=== PATIENT | male | born 1950 | race Caucasian/White ===

== ENCOUNTER 2017-02-10 11:59 | Inpatient (IN) | payer OTHER, MEDICARE ==
[~2017-02-10] VITALS: Ht 172.7 cm; Wt 101.2 kg
[2017-02-10 13:22] LABS: Hematocrit 44.9 % (41.0-53.0); Hemoglobin 15.2 g/dL (13.5-17.5); Mean Corpuscular Hemoglobin 31.5 pg (28.0-32.0); Mean Corpuscular Hgb Conc. 33.9 g/dL (32.0-36.0); Mean Corpuscular Volume 92.8 fL (80.0-100.0); Mean Platelet Volume 7.6 fL (6.9-10.8); Platelet Count (auto) 210 10^3/uL (140-450); Red Cell Distribution Width 14.8 % (11.8-14.3); White Blood Cell 3.8 10^3/uL (4.4-10.8)
[2017-02-10 13:26] LABS: Metamyelocytes % 0; Myelocytes % 0; Promyelocytes % 0; Reactive Lymphocytes 0
[2017-02-10 13:33] LABS: Albumin 3.2 g/dL (3.4-5.0); BUN/Creatinine Ratio 19.5; Calcium 8.3 mg/dL (8.5-10.1); Potassium 3.7 mmol/L (3.5-5.1)
[2017-02-10 13:36] LABS: Bilirubin, Total 0.5 mg/dL (0.2-1.0); Total Protein 6.8 g/dL (6.4-8.2)
[2017-02-10 14:00] LABS: B-Type Natriuretic Peptide 76.63 pg/mL (0-100)
[2017-02-10 14:01] LABS: Temperature: 23.1 C (20.0-25.0)
[2017-02-10 14:15] LABS: Giant Platelets Few; Large Platelets FEW; Ovalocytes FEW; Platelet Estimate Adequate
[2017-02-10] MEDS ORDERED: methylPREDNISolone SOD SUCC 125 MG/2 ML VL IV ONE (14:30)
[2017-02-10] MEDS ORDERED: ALBUTEROL SULF 2.5 MG/0.5ML(0.5%) NEB SOLN NEB ONE (14:30)
[2017-02-10] MEDS ORDERED: IPRATROPIUM BROM 0.5 MG/2.5ML INH SOL NEB ONE (14:30)
[2017-02-10 16:16] LABS: Urine Bilirubin Negative (Negative); Urine Blood Negative /uL (Negative); Urine Color Yellow (Yellow); Urine Glucose Normal (Normal); Urine Hyaline Cast MOD /lpf (0 - 2); Urine Ketone 1+ (Negative); Urine Mucus FEW (None Seen); Urine Nitrite Negative (Negative); Urine RBC <1 /hpf (0 - 3); Urine Squamous Epithelial Cell FEW /hpf (<5); Urine Urobilinogen Normal (Negative)
[2017-02-10] MEDS ORDERED: HYDROcodone-ACET 5/325MG TAB PO PRN (16:45)
[2017-02-10] MEDS ORDERED: ALBUTEROL SULF 2.5 MG/0.5ML(0.5%) NEB SOLN NEB PRN (16:45)
[2017-02-10] MEDS ORDERED: NITROGLYCERIN 0.4 MG SL TAB SL PRN (16:45)
[2017-02-10] MEDS ORDERED: ACETAMINOPHEN 500 MG TAB PO PRN (16:45)
[2017-02-10] MEDS ORDERED: DOXYCYCLINE HYC 100MG/250ML 250 ML IV SCH (16:45)
[2017-02-10] MEDS ORDERED: OSELTAMIVIR 75 MG CAP PO ONE (16:45)
[2017-02-10] MEDS ORDERED: LACTULOSE 20Gm/30ML SOLN PO PRN (16:45)
[2017-02-10] MEDS ORDERED: MORPHINE SULF INJ 2 MG/ML SYRINGE 1ML IV PRN ×2 (16:45)
[2017-02-10] MEDS ORDERED: DEXTROSE (50%) 50ML SYRG IV PRN (16:45)
[2017-02-10] MEDS ORDERED: LORazepam 0.5 MG TAB PO PRN (16:45)
[2017-02-10] MEDS ORDERED: TEMAZEPAM 15 MG CAP PO PRN (16:45)
[2017-02-10] MEDS ORDERED: PROMETHAZINE HCL 25 MG/ML 1ML IV PRN (16:45)
[2017-02-10] MEDS ORDERED: LEVOFLOXACIN 500MG 100 ML IV ONE (17:00)
[2017-02-10] MEDS: IPRATROPIUM BROM 0.5 MG/2.5ML INH SOL NEB SCH ×2 (18:30→23:14)
[2017-02-10] MEDS: ALBUTEROL SULF 2.5 MG/0.5ML(0.5%) NEB SOLN NEB SCH ×2 (18:30→23:15)
[2017-02-10] MEDS: methylPREDNISolone SOD SUCC 40 MG/ML VL IV SCH (18:43)
[2017-02-10] MEDS: InsuLIN REG 1unit/0.01ml Soln (100units/ml) SC SCH ×2 (18:44→22:08)
[2017-02-10] MEDS: ACCU-CHEK COMFORT CURVE STRIP VI SCH ×2 (18:44→21:56)
[2017-02-10] MEDS: SODIUM CHLORIDE 0.9% 1,000 ML IV SCH (18:44)
[2017-02-10] MEDS ORDERED: LABETALOL HCL 5 MG/ML ML 20ML VIAL IV PRN ×2 (19:00)
[2017-02-10 21:20] VITALS: BP 168/99
[2017-02-10 21:46] VITALS: BP 168/99
[2017-02-10 22:10] VITALS: BP 168/99
[2017-02-11] MEDS ORDERED: GLIP-115 PO (01:33)
[2017-02-11] MEDS ORDERED: TEMA30CA PO (01:33)
[2017-02-11] MEDS ORDERED: OLOD1AER2 IN (01:33)
[2017-02-11] MEDS ORDERED: OME20T PO (01:33)
[2017-02-11] MEDS ORDERED: DOCU100T15 PO (01:33)
[2017-02-11] MEDS ORDERED: SIMV-13 PO (01:33)
[2017-02-11] MEDS ORDERED: LOSA50TA6 PO (01:33)
[2017-02-11] MEDS ORDERED: MOME200A INH (01:33)
[2017-02-11] MEDS ORDERED: METO-159 PO (01:33)
[2017-02-11] MEDS ORDERED: ASPI81CH43 GT (01:33)
[2017-02-11] MEDS ORDERED: HYDR-4683 PO (01:33)
[2017-02-11] MEDS ORDERED: GABA-497 PO (01:33)
[2017-02-11] MEDS: methylPREDNISolone SOD SUCC 40 MG/ML VL IV SCH ×2 (05:01→17:10)
[2017-02-11 05:11] VITALS: BP 162/93
[2017-02-11 05:28] LABS: Basophils # (auto) 0 uL; Eosinophils # (auto) 0 uL; Hemoglobin 15.3 g/dL (13.5-17.5); Lymphocytes # (auto) 0.2 uL; Monocytes # (auto) 0.1 uL; Red Cell Distribution Width 14.3 % (11.8-14.3)
[2017-02-11 05:30] LABS: Basophils % (auto) 0.1 % (0.0-2.0); Lymphocytes % (auto) 19.9 % (10.0-50.0); Mean Corpuscular Hemoglobin 31.7 pg (28.0-32.0); Mean Corpuscular Hgb Conc. 34.7 g/dL (32.0-36.0); Mean Corpuscular Volume 91.3 fL (80.0-100.0); Mean Platelet Volume 7.7 fL (6.9-10.8); Monocytes % (auto) 10.6 % (0.0-12.0); Neutrophils # (auto) 0.7 uL; Neutrophils % (auto) 69.4 % (37.0-80.0); Nucleated Red Blood Cells % 0.6 %; Platelet Count (auto) 198 10^3/uL (140-450)
[2017-02-11] MEDS: SODIUM CHLORIDE 0.9% 1,000 ML IV SCH ×2 (05:41→16:39)
[2017-02-11 05:42] LABS: White Blood Cell 1.1 10^3/uL (4.4-10.8)
[2017-02-11 05:46] LABS: Albumin 3.1 g/dL (3.4-5.0); BUN/Creatinine Ratio 17.7; Bilirubin, Total 0.5 mg/dL (0.2-1.0); Calcium 8.3 mg/dL (8.5-10.1); Total Protein 6.7 g/dL (6.4-8.2)
[2017-02-11] MEDS: ACCU-CHEK COMFORT CURVE STRIP VI SCH ×4 (06:20→21:54)
[2017-02-11] MEDS: InsuLIN REG 1unit/0.01ml Soln (100units/ml) SC SCH ×4 (06:29→21:55)
[2017-02-11] MEDS ORDERED: DOXYCYCLINE HYC 100MG/250ML 250 ML IV SCH (06:45)
[2017-02-11] MEDS: IPRATROPIUM BROM 0.5 MG/2.5ML INH SOL NEB SCH ×3 (07:03→18:49)
[2017-02-11] MEDS: ALBUTEROL SULF 2.5 MG/0.5ML(0.5%) NEB SOLN NEB SCH ×3 (07:03→18:49)
[2017-02-11 08:42] VITALS: BP 162/88
[2017-02-11] MEDS: LEVOFLOXACIN 500MG 100 ML IV SCH (09:57)
[2017-02-11] MEDS: ENOXAPARIN SOD 40 MG/0.4 ML SYRINGE SC SCH (09:57)
[2017-02-11] MEDS ORDERED: OSELTAMIVIR 75 MG CAP PO SCH (10:00)
[2017-02-11] MEDS ORDERED: MORPHINE SULFATE 4 MG/ML SYRG IV PRN ×2 (11:45)
[2017-02-11 13:00] VITALS: BP 169/96
[2017-02-11] MEDS ORDERED: LOSARTAN POTASSIUM 50 MG TAB PO ONE (15:30)
[2017-02-11 17:00] VITALS: BP 155/95
[2017-02-11] MEDS: METOPROLOL TARTRATE 50 MG TAB PO SCH (21:56)
[2017-02-11 22:00] VITALS: BP 197/111
[2017-02-12] MEDS: methylPREDNISolone SOD SUCC 40 MG/ML VL IV SCH (04:57)
[2017-02-12 05:06] VITALS: BP 149/89
[2017-02-12 05:53] LABS: Hematocrit 46.1 % (41.0-53.0); Hemoglobin 15.9 g/dL (13.5-17.5); Mean Corpuscular Hemoglobin 31.9 pg (28.0-32.0); Mean Corpuscular Hgb Conc. 34.6 g/dL (32.0-36.0); Mean Corpuscular Volume 92.2 fL (80.0-100.0); Mean Platelet Volume 7.9 fL (6.9-10.8); Platelet Count (auto) 228 10^3/uL (140-450); Red Cell Distribution Width 14.1 % (11.8-14.3)
[2017-02-12 06:04] LABS: BUN/Creatinine Ratio 18.2; Calcium 8.5 mg/dL (8.5-10.1); Magnesium 2.1 mg/dL (1.6-2.6); Potassium 4.2 mmol/L (3.5-5.1)
[2017-02-12] MEDS: ALBUTEROL SULF 2.5 MG/0.5ML(0.5%) NEB SOLN NEB SCH ×3 (06:15→11:28)
[2017-02-12] MEDS: IPRATROPIUM BROM 0.5 MG/2.5ML INH SOL NEB SCH ×3 (06:15→11:28)
[2017-02-12 06:28] LABS: Metamyelocytes % 0; Myelocytes % 0; Promyelocytes % 0; Reactive Lymphocytes 0
[2017-02-12] MEDS: ACCU-CHEK COMFORT CURVE STRIP VI SCH ×2 (06:28→11:30)
[2017-02-12] MEDS: InsuLIN REG 1unit/0.01ml Soln (100units/ml) SC SCH ×2 (06:36→11:40)
[2017-02-12 06:53] LABS: Platelet Estimate Adequate
[2017-02-12] MEDS: SODIUM CHLORIDE 0.9% 1,000 ML IV SCH (08:10)
[2017-02-12 08:36] VITALS: BP 143/84
[2017-02-12] MEDS ORDERED: LOSARTAN POTASSIUM 50 MG TAB PO SCH (10:00)
[2017-02-12] MEDS: LEVOFLOXACIN 500MG 100 ML IV SCH ×2 (10:23→10:30)
[2017-02-12] MEDS: METOPROLOL TARTRATE 50 MG TAB PO SCH (10:24)
[2017-02-12] MEDS: ENOXAPARIN SOD 40 MG/0.4 ML SYRINGE SC SCH (10:24)
[2017-02-12] MEDS ORDERED: LEVOFLOXACIN 500 MG TAB PO ONE (11:00)
[2017-02-12] MEDS ORDERED: LEVO500T21 PO (12:33)
[2017-02-12 12:37] VITALS: BP 159/88
[2017-02-12 13:00] VITALS: BP 140/80
== END 2017-02-12 14:30 | disposition home or self-care (01) | DRG 189 ==
LOC: ER 11:59 → TELE 12:00 → TELE-CENTR 20:25
PROVIDERS: ADMIT Internal Medicine; ATTEND Internal Medicine
DX: J96.01 Acute respiratory failure with hypoxia (principal); I27.20 Pulmonary hypertension, unspecified; J44.0 Chronic obstructive pulmonary disease with (acute) lower respiratory infection; J90 Pleural effusion, not elsewhere classified; Z99.81 Dependence on supplemental oxygen; D72.819 Decreased white blood cell count, unspecified; E11.9 Type 2 diabetes mellitus without complications; J44.1 Chronic obstructive pulmonary disease with (acute) exacerbation; I49.3 Ventricular premature depolarization; J20.9 Acute bronchitis, unspecified; T75.89XA Other specified effects of external causes, initial encounter; X58.XXXA Exposure to other specified factors, initial encounter; I10 Essential (primary) hypertension; E78.5 Hyperlipidemia, unspecified; I70.0 Atherosclerosis of aorta; I25.10 Atherosclerotic heart disease of native coronary artery without angina pectoris; Z95.5 Presence of coronary angioplasty implant and graft; I25.2 Old myocardial infarction; Z90.49 Acquired absence of other specified parts of digestive tract; Z87.891 Personal history of nicotine dependence; Y93.89 Activity, other specified; Y92.89 Other specified places as the place of occurrence of the external cause; Y99.8 Other external cause status
CPT/HCPCS: 36415; 71010; 80048; 80053; 80061; 81001; 82962; 83036; 83735; 83880; 85007; 85025; 85027; 87070; 87205; 87400; 87493; 93005; 94640; 96365; 96366; 96367; 96375; J1815; J1956; J3490

== ENCOUNTER 2020-08-11 09:22 | Inpatient (IN) | payer OTHER, MEDICARE ==
[~2020-08-11] VITALS: Ht 170.2 cm; Wt 75.1 kg
[~2020-08-11 09:22] MED LIST: ASPI81CH43 GT; DOCU100T15 PO; GABA300C10 PO; GLIP5TAB12 PO; HYDR-4833 PO; LEVO500T31 PO; LOSA-69 PO; METO-159 PO; MOME200A INH; OLOD1AER2 IN; OME20T PO; SIMV-13 PO; TEMA30CA PO
[2020-08-11] MEDS ORDERED: ASPirin 81 mg TAB PO ONE (09:45)
[2020-08-11] MEDS ORDERED: dilTIAZem 25 MG/5 ML VIAL IV ONE (09:45)
[2020-08-11] MEDS ORDERED: SODIUM CHLORIDE 0.9% 1,000 ML IV ONE (09:45)
[2020-08-11] MEDS ORDERED: NOREPINEPHRINE 8 MG/250ML KIT 250 ML IV SCH (09:45)
[2020-08-11 10:17] LABS: Basophils # (auto) 0 10 ^3/uL (0-0.2); Basophils % (auto) 0.3 % (0.0-2.0); Eosinophils # (auto) 0 10 ^3/uL (0-0.8); Eosinophils % (auto) 0.1 % (0.0-7.0); Hematocrit 35.8 % (41.0-53.0); Hemoglobin 12.3 g/dL (13.5-17.5); Lymphocytes # (auto) 0.5 10 ^3/uL (0.4-5.4); Lymphocytes % (auto) 4.2 % (10.0-50.0); Mean Corpuscular Hemoglobin 32.3 pg (28.0-32.0); Mean Corpuscular Hgb Conc. 34.3 g/dL (32.0-36.0); Mean Corpuscular Volume 93.9 fL (80.0-100.0); Monocytes # (auto) 1.1 10 ^3/uL (0-1.3); Monocytes % (auto) 9.3 % (0.0-12.0); Neutrophils # (auto) 10.3 10 ^3/uL (1.6-8.6); Neutrophils % (auto) 86.1 % (37.0-80.0); Red Blood Cells 3.81 10^6/uL (4.5-5.90); Red Cell Distribution Width 14.8 % (11.8-14.3)
[2020-08-11 10:23] LABS: INR 1.14 (0.9-1.15)
[2020-08-11 10:26] LABS: Albumin 3.3 g/dL (3.4-5.0); Calcium 8.4 mg/dL (8.5-10.1); Potassium 3.8 mmol/L (3.5-5.1)
[2020-08-11 10:32] LABS: BUN/Creatinine Ratio 13.7; Bilirubin, Total 0.5 mg/dL (0.2-1.0); Total Protein 6.1 g/dL (6.4-8.2)
[2020-08-11] MEDS ORDERED: ENOXAPARIN SOD 100 MG/1 ML SYRINGE SC ONE (11:00)
[2020-08-11] MEDS ORDERED: DIGOXIN (250MCG/ML) 2 ML AMPULE IV ONE (12:30)
[2020-08-11] MEDS ORDERED: NITROGLYCERIN 0.4 MG SL TAB SL PRN (13:30)
[2020-08-11] MEDS ORDERED: MORPHINE SULF INJ 2 MG/ML SYRINGE 1ML IV PRN (13:30)
[2020-08-11] MEDS ORDERED: HYDROcodone-ACET 5/325MG TAB PO PRN (13:30)
[2020-08-11] MEDS: PHENYLEPHRINE INJ 40 MG in SODIUM CHL 0.9% 246 ML IV SCH (13:47)
[2020-08-11] MEDS ORDERED: AMIODARONE HCL 150 MG in D5W 5% 100 ML IV ONE ×2 (14:15→16:00)
[2020-08-11] MEDS ORDERED: AMIODARONE 450mg/250ml AE 250 ML IV SCH ×4 (14:30→22:15)
[2020-08-11] MEDS ORDERED: ASPI-498 PO (15:20)
[2020-08-11] MEDS ORDERED: LOSA-39 PO (15:29)
[2020-08-11] MEDS ORDERED: TRAZ50TA2 PO (15:29)
[2020-08-11] MEDS ORDERED: METF-370 PO (15:29)
[2020-08-11] MEDS ORDERED: SERT-160 PO (15:29)
[2020-08-11] MEDS ORDERED: FURO20TA3 PO (15:29)
[2020-08-11] MEDS ORDERED: OMEP-260 PO (15:29)
[2020-08-11] MEDS ORDERED: ALBU0.084 NEB (15:29)
[2020-08-11] MEDS ORDERED: DOCU250C4 PO (15:29)
[2020-08-11] MEDS ORDERED: ALBUAER3 IN (15:29)
[2020-08-11] MEDS ORDERED: TIOT17SP IN (15:29)
[2020-08-11] MEDS ORDERED: CHOL500023 PO (15:29)
[2020-08-11] MEDS ORDERED: ROSU5TAB5 PO (15:29)
[2020-08-11] MEDS ORDERED: ACET-6 PO (15:29)
[2020-08-11] MEDS ORDERED: BUDE1AER4 IN (15:33)
[2020-08-11] MEDS ORDERED: GABA300C10 PO (15:34)
[2020-08-11] MEDS ORDERED: THROLOZ41 MT (15:36)
[2020-08-11] MEDS: ACETAMINOPHEN 500 MG TAB PO PRN (15:38)
[2020-08-11] MEDS: SODIUM CHLOR 0.9% PF (SALINE LOCK) 10ML VIAL/SYR IV SCH (22:00)
[2020-08-11] MEDS: METOPROLOL TARTRATE 50 MG TAB PO SCH (22:49)
[2020-08-11] MEDS: AMIODARONE HCL 200 MG TAB PO SCH (22:49)
[2020-08-11] MEDS: ATORVASTATIN 20 MG TAB PO SCH (22:49)
[2020-08-12] MEDS: PHENYLEPHRINE INJ 40 MG in SODIUM CHL 0.9% 246 ML IV SCH (05:10)
[2020-08-12 06:30] LABS: Hemoglobin 11.9 g/dL (13.5-17.5); Mean Corpuscular Hgb Conc. 34.1 g/dL (32.0-36.0)
[2020-08-12 06:34] LABS: Red Blood Cells 3.73 10^6/uL (4.5-5.90); Red Cell Distribution Width 15.1 % (11.8-14.3)
[2020-08-12 06:37] LABS: INR 1.14 (0.9-1.15); Partial Thromboplastin Time 30.2 sec (23.0-31.2)
[2020-08-12 06:42] LABS: Potassium 4.1 mmol/L (3.5-5.1)
[2020-08-12 07:00] LABS: BUN/Creatinine Ratio 14.2; White Blood Cell 36.6 10^3/uL (4.4-10.8)
[2020-08-12 07:01] LABS: Basophils % (manual) 0 (0.0-2.0); Blast Cells 0; Eosinophils % (manual) 0 (0-7); Metamyelocytes % 0; Myelocytes % 0; Promyelocytes % 0; Reactive Lymphocytes 0
[2020-08-12 07:36] LABS: Band Neutrophils % (manual) 4; Lymphocytes % (manual) 1 (10.0-50.0); Monocytes % (manual) 7 (0-12)
[2020-08-12] MEDS ORDERED: cefTRIAXone 1GM/50ML D5W 50 ML IV SCH (09:00)
[2020-08-12] MEDS: ASPirin-EC 81 mg tab PO SCH (09:39)
[2020-08-12] MEDS: SODIUM CHLORIDE 0.9% 1,000 ML IV SCH ×2 (09:39→22:50)
[2020-08-12] MEDS: SODIUM CHLOR 0.9% PF (SALINE LOCK) 10ML VIAL/SYR IV SCH ×2 (09:39→22:00)
[2020-08-12] MEDS: AMIODARONE HCL 200 MG TAB PO SCH ×2 (09:40→23:24)
[2020-08-12] MEDS: FAMOTIDINE 20 MG TAB PO SCH (09:40)
[2020-08-12] MEDS: ENOXAPARIN SOD 80 MG/0.8ML SYRINGE SC SCH (09:48)
[2020-08-12] MEDS: METOPROLOL TARTRATE 50 MG TAB PO SCH ×2 (09:51→22:00)
[2020-08-12 11:15] LABS: Urine Amorphous Crystal FEW /hpf (None Seen); Urine Bacteria NONE SEEN /hpf (None Seen); Urine Blood 3+ /uL (Negative); Urine Specific Gravity 1.015 (1.001-1.035); Urine WBC 3 /hpf (0 - 3)
[2020-08-12 11:30] LABS: Sodium Urine 25 mmol/L (40-220)
[2020-08-12 11:32] LABS: Creatinine, Urine 174 mg/dL (30.0-125.0)
[2020-08-12] MEDS ORDERED: DEXTROSE (50%) 50ML SYRG IV PRN (15:00)
[2020-08-12] MEDS ORDERED: PIPERACILLIN-TAZOB 2.25GM 50 ML IV ONE (15:00)
[2020-08-12 15:10] LABS: Protein, Urine 106.5 mg/dL (0.0-11.9)
[2020-08-12 15:25] LABS: Alcohol, Urine < 3.0 mg/dL (0-10); Amphetamine Screen, Urine NEGATIVE (NEGATIVE); Barbiturate Scree,Urine NEGATIVE (NEGATIVE); Benzodiazephine Screen, Urine NEGATIVE (NEGATIVE); Cannabinoid Screen, Urine NEGATIVE (NEGATIVE); Cocaine Screen, Urine NEGATIVE (NEGATIVE); Opiate Scree,Urine NEGATIVE (NEGATIVE); Phencyclidine Screen, Urine NEGATIVE (NEGATIVE)
[2020-08-12 15:38] VITALS: BP 133/75
[2020-08-12] MEDS: MORPHINE SULF INJ 2 MG/ML SYRINGE 1ML IV PRN (16:14)
[2020-08-12] MEDS: InsuLIN REG 1unit/0.01ml Soln (100units/ml) SC SCH ×2 (16:16→22:52)
[2020-08-12] MEDS: ACCU-CHEK COMFORT CURVE STRIP VI SCH ×2 (16:17→22:50)
[2020-08-12] MEDS: IPRATROPIUM BROM 0.5 MG/2.5ML INH SOL NEB PRN (18:23)
[2020-08-12] MEDS: LEVALBUTEROL HCL 1.25 MG/3 ML NEB NEB SCH (18:23)
[2020-08-12] MEDS: PIPERACILLIN-TAZOB 2.25GM 50 ML IV SCH (23:24)
[2020-08-12] MEDS: ATORVASTATIN 20 MG TAB PO SCH (23:24)
[2020-08-13] MEDS: LEVALBUTEROL HCL 1.25 MG/3 ML NEB NEB SCH ×4 (00:32→22:39)
[2020-08-13] MEDS: IPRATROPIUM BROM 0.5 MG/2.5ML INH SOL NEB PRN ×2 (00:32→22:39)
[2020-08-13] MEDS: PIPERACILLIN-TAZOB 2.25GM 50 ML IV SCH ×3 (06:16→22:13)
[2020-08-13] MEDS: InsuLIN REG 1unit/0.01ml Soln (100units/ml) SC SCH (07:00)
[2020-08-13] MEDS: ACCU-CHEK COMFORT CURVE STRIP VI SCH (07:01)
[2020-08-13 07:42] LABS: Basophils # (auto) 0.2 10 ^3/uL (0-0.2); Eosinophils # (auto) 0.1 10 ^3/uL (0-0.8); Eosinophils % (auto) 0.3 % (0.0-7.0); Hematocrit 33.3 % (41.0-53.0); Hemoglobin 11.4 g/dL (13.5-17.5); Lymphocytes # (auto) 0.4 10 ^3/uL (0.4-5.4); Lymphocytes % (auto) 2.3 % (10.0-50.0); Mean Corpuscular Hgb Conc. 34.2 g/dL (32.0-36.0); Mean Corpuscular Volume 93.7 fL (80.0-100.0); Monocytes # (auto) 1.3 10 ^3/uL (0-1.3); Monocytes % (auto) 6.9 % (0.0-12.0); Neutrophils # (auto) 17.5 10 ^3/uL (1.6-8.6); Neutrophils % (auto) 89.5 % (37.0-80.0); Red Blood Cells 3.55 10^6/uL (4.5-5.90); Red Cell Distribution Width 14.9 % (11.8-14.3); White Blood Cell 19.5 10^3/uL (4.4-10.8)
[2020-08-13 08:03] LABS: Albumin 2.6 g/dL (3.4-5.0); Calcium 7.6 mg/dL (8.5-10.1); Magnesium 1.9 mg/dL (1.6-2.6); Potassium 4.3 mmol/L (3.5-5.1)
[2020-08-13 08:06] LABS: BUN/Creatinine Ratio 18.8
[2020-08-13 08:11] LABS: Bilirubin, Total 0.4 mg/dL (0.2-1.0); Total Protein 5.6 g/dL (6.4-8.2)
[2020-08-13] MEDS: SODIUM CHLOR 0.9% PF (SALINE LOCK) 10ML VIAL/SYR IV SCH ×2 (09:32→22:08)
[2020-08-13] MEDS: ENOXAPARIN SOD 80 MG/0.8ML SYRINGE SC SCH (09:33)
[2020-08-13] MEDS: METOPROLOL TARTRATE 50 MG TAB PO SCH ×2 (09:33→22:12)
[2020-08-13] MEDS: AMIODARONE HCL 200 MG TAB PO SCH ×2 (09:33→22:12)
[2020-08-13] MEDS: ASPirin-EC 81 mg tab PO SCH (09:33)
[2020-08-13 12:45] VITALS: BP 112/77
[2020-08-13] MEDS ORDERED: LORazepam 2MG/ML-1ML VIAL IV ONE (13:45)
[2020-08-13] MEDS ORDERED: MAGNESIUM SULFATE 1GM/100ML 100 ML IV ONE (13:45)
[2020-08-13 17:00] VITALS: BP 148/84
[2020-08-13] MEDS: SODIUM CHLORIDE 0.9% 1,000 ML IV SCH (17:25)
[2020-08-13] MEDS: MORPHINE SULF INJ 2 MG/ML SYRINGE 1ML IV PRN (18:04)
[2020-08-13 22:03] VITALS: BP 141/76
[2020-08-13] MEDS: ATORVASTATIN 20 MG TAB PO SCH (22:12)
[2020-08-14] VITALS (14 sets, daily range): BP systolic 118–178; BP diastolic 51–126
[2020-08-14] MEDS: IPRATROPIUM BROM 0.5 MG/2.5ML INH SOL NEB PRN ×3 (00:32→18:50)
[2020-08-14] MEDS: LEVALBUTEROL HCL 1.25 MG/3 ML NEB NEB SCH ×4 (00:33→18:50)
[2020-08-14] MEDS: PIPERACILLIN-TAZOB 2.25GM 50 ML IV SCH ×3 (05:58→20:53)
[2020-08-14] MEDS: SODIUM CHLORIDE 0.9% 1,000 ML IV SCH (06:25)
[2020-08-14 06:53] LABS: Basophils # (auto) 0 10 ^3/uL (0-0.2); Basophils % (auto) 0.2 % (0.0-2.0); Eosinophils # (auto) 0.1 10 ^3/uL (0-0.8); Eosinophils % (auto) 0.7 % (0.0-7.0); Hematocrit 31.9 % (41.0-53.0); Hemoglobin 11.1 g/dL (13.5-17.5); Lymphocytes # (auto) 0.4 10 ^3/uL (0.4-5.4); Lymphocytes % (auto) 3.2 % (10.0-50.0); Mean Corpuscular Hemoglobin 32.6 pg (28.0-32.0); Mean Corpuscular Hgb Conc. 34.7 g/dL (32.0-36.0); Mean Corpuscular Volume 93.9 fL (80.0-100.0); Monocytes # (auto) 1.4 10 ^3/uL (0-1.3); Monocytes % (auto) 11.6 % (0.0-12.0); Neutrophils # (auto) 9.8 10 ^3/uL (1.6-8.6); Neutrophils % (auto) 84.3 % (37.0-80.0); Red Cell Distribution Width 14.9 % (11.8-14.3); White Blood Cell 11.7 10^3/uL (4.4-10.8)
[2020-08-14 07:10] LABS: Albumin 2.6 g/dL (3.4-5.0); Calcium 8.1 mg/dL (8.5-10.1); Magnesium 2.2 mg/dL (1.6-2.6); Potassium 4.1 mmol/L (3.5-5.1)
[2020-08-14 07:21] LABS: Bilirubin, Total 0.4 mg/dL (0.2-1.0); Total Protein 5.6 g/dL (6.4-8.2)
[2020-08-14 09:05] LABS: Folate (Folic Acid) 4.48 ng/mL (5.38-24)
[2020-08-14] MEDS ORDERED: DIGOXIN (250MCG/ML) 2 ML AMPULE ONE (09:39)
[2020-08-14] MEDS ORDERED: DIGOXIN (250MCG/ML) 2 ML AMPULE IV ONE (09:45)
[2020-08-14] MEDS: ASPirin-EC 81 mg tab PO SCH (10:27)
[2020-08-14] MEDS: AMIODARONE HCL 200 MG TAB PO SCH ×2 (10:27→20:53)
[2020-08-14] MEDS: METOPROLOL TARTRATE 50 MG TAB PO SCH ×2 (10:27→20:54)
[2020-08-14] MEDS: ENOXAPARIN SOD 80 MG/0.8ML SYRINGE SC SCH ×2 (10:28→20:54)
[2020-08-14] MEDS: FAMOTIDINE 20 MG TAB PO SCH (10:28)
[2020-08-14] MEDS ORDERED: BUDESONIDE (INHALATION) 0.5 MG/2 ML NEB NEB ONE (11:33)
[2020-08-14] MEDS: SODIUM CHLOR 0.9% PF (SALINE LOCK) 10ML VIAL/SYR IV SCH ×2 (11:47→20:52)
[2020-08-14] MEDS ORDERED: hydrALAZINE HCL 20 MG/ML VL ONE (13:59)
[2020-08-14] MEDS ORDERED: FUROSEMIDE 20 MG/2 ML VIAL ONE (13:59)
[2020-08-14] MEDS ORDERED: guaiFENesin-DM 100/10mg/5ml SYR PO PRN (14:00)
[2020-08-14] MEDS ORDERED: FUROSEMIDE 20 MG/2 ML VIAL IV ONE (14:00)
[2020-08-14] MEDS ORDERED: ONDANSETRON HCL 4 MG/2 ML VIAL ONE (14:42)
[2020-08-14] MEDS: ONDANSETRON HCL 4 MG/2 ML VIAL IV PRN (14:49)
[2020-08-14] MEDS: hydrALAZINE HCL 20 MG/ML VL IV PRN (14:49)
[2020-08-14] MEDS: BUDESONIDE (INHALATION) 0.5 MG/2 ML NEB NEB SCH (18:50)
[2020-08-14] MEDS: ATORVASTATIN 20 MG TAB PO SCH (20:53)
[2020-08-14] MEDS: traZODone HCL 50 MG TAB PO SCH (20:53)
[2020-08-15] VITALS (23 sets, daily range): BP systolic 115–179; BP diastolic 55–94
[2020-08-15] MEDS: LEVALBUTEROL HCL 1.25 MG/3 ML NEB NEB SCH ×4 (00:39→19:10)
[2020-08-15] MEDS: SODIUM CHLORIDE 0.9% 1,000 ML IV SCH ×2 (01:00→15:45)
[2020-08-15] MEDS: PIPERACILLIN-TAZOB 2.25GM 50 ML IV SCH ×3 (03:14→15:36)
[2020-08-15] MEDS: MORPHINE SULF INJ 2 MG/ML SYRINGE 1ML IV PRN ×4 (05:04→20:19)
[2020-08-15 05:22] LABS: Basophils # (auto) 0 10 ^3/uL (0-0.2); Basophils % (auto) 0.3 % (0.0-2.0); Eosinophils # (auto) 0.1 10 ^3/uL (0-0.8); Hematocrit 31.3 % (41.0-53.0); Hemoglobin 10.8 g/dL (13.5-17.5); Lymphocytes # (auto) 0.4 10 ^3/uL (0.4-5.4); Lymphocytes % (auto) 3.5 % (10.0-50.0); Mean Corpuscular Hemoglobin 32.7 pg (28.0-32.0); Mean Corpuscular Hgb Conc. 34.4 g/dL (32.0-36.0); Mean Corpuscular Volume 94.9 fL (80.0-100.0); Monocytes # (auto) 1.2 10 ^3/uL (0-1.3); Monocytes % (auto) 11.2 % (0.0-12.0); Neutrophils # (auto) 8.7 10 ^3/uL (1.6-8.6); Red Cell Distribution Width 15.2 % (11.8-14.3); White Blood Cell 10.3 10^3/uL (4.4-10.8)
[2020-08-15] MEDS: IPRATROPIUM BROM 0.5 MG/2.5ML INH SOL NEB PRN ×2 (06:00→19:10)
[2020-08-15] MEDS: BUDESONIDE (INHALATION) 0.5 MG/2 ML NEB NEB SCH ×2 (06:01→20:04)
[2020-08-15 06:06] LABS: Albumin 2.7 g/dL (3.4-5.0); BUN/Creatinine Ratio 48.5; Bilirubin, Total 0.6 mg/dL (0.2-1.0); Total Protein 5.6 g/dL (6.4-8.2)
[2020-08-15 08:58] LABS: INR 1.13 (0.9-1.15); Partial Thromboplastin Time 32.2 sec (23.0-31.2)
[2020-08-15] MEDS ORDERED: HEPARIN SODIUM (PORCINE) 5000 UNITS/ML 1ML VIAL ONE (09:11)
[2020-08-15] MEDS ORDERED: fentaNYL CITRATE 100 MCG/2 ML VL ONE (09:11)
[2020-08-15] MEDS ORDERED: ANGIOMAX 250 MG VIAL IV ONE (09:11)
[2020-08-15] MEDS ORDERED: VERAPAMIL 2.5MG/ML INJ 2ML VIAL IV ONE (09:11)
[2020-08-15] MEDS ORDERED: LIDOCAINE 2%HCL (LOCAL ANESTH.) INJ 20ML MDV ONE (09:12)
[2020-08-15] MEDS ORDERED: MIDAZOLAM HCL 1MG/1ML-2 ML VIAL ONE (09:12)
[2020-08-15] MEDS ORDERED: SODIUM CHL 0.9% 50 ML ONE (09:12)
[2020-08-15] MEDS ORDERED: IODIXANOL 320MG/ML 100ML BTL IV ONE ×2 (09:26→10:49)
[2020-08-15] MEDS ORDERED: FAMOTIDINE 20 MG TAB PO SCH (10:00)
[2020-08-15] MEDS: ASPirin-EC 81 mg tab PO SCH (10:00)
[2020-08-15] MEDS ORDERED: ASPirin 325 MG TAB ONE (11:14)
[2020-08-15] MEDS ORDERED: CLOPIDOGREL 300 MG TAB ONE (11:14)
[2020-08-15] MEDS ORDERED: METOPROLOL TARTRATE 1MG/1ML-5ML VIAL IV ONE (11:15)
[2020-08-15] MEDS ORDERED: hydrALAZINE HCL 20 MG/ML VL ONE (11:15)
[2020-08-15] MEDS: SODIUM CHLOR 0.9% PF (SALINE LOCK) 10ML VIAL/SYR IV SCH ×2 (11:17→21:40)
[2020-08-15] MEDS: ENOXAPARIN SOD 80 MG/0.8ML SYRINGE SC SCH (12:00)
[2020-08-15] MEDS: METOPROLOL TARTRATE 50 MG TAB PO SCH ×2 (12:42→21:42)
[2020-08-15] MEDS: SERTRALINE HCL 50 MG TAB PO SCH (12:43)
[2020-08-15] MEDS: AMIODARONE HCL 200 MG TAB PO SCH ×2 (12:44→21:41)
[2020-08-15] MEDS: LORazepam 2MG/ML-1ML VIAL IV PRN (13:19)
[2020-08-15] MEDS: hydrALAZINE HCL 20 MG/ML VL IV PRN (13:29)
[2020-08-15] MEDS ORDERED: CLOPIDOGREL 300 MG TAB PO ONE (14:00)
[2020-08-15] MEDS ORDERED: FUROSEMIDE 20 MG/2 ML VIAL IV ONE (17:15)
[2020-08-15] MEDS: PIPERACILLIN-TAZOB 3.375GM 100 ML IV SCH (21:40)
[2020-08-15] MEDS: APIXABAN 5 MG TAB PO SCH (21:41)
[2020-08-15] MEDS: ATORVASTATIN 20 MG TAB PO SCH (21:41)
[2020-08-15] MEDS: traZODone HCL 50 MG TAB PO SCH (21:41)
[2020-08-15] MEDS ORDERED: ENOXAPARIN SOD 80 MG/0.8ML SYRINGE SC SCH (22:00)
[2020-08-15] MEDS ORDERED: ENOXAPARIN SOD 100 MG/1 ML SYRINGE SC SCH (22:00)
[2020-08-15] MEDS ORDERED: APIXABAN 5 MG TAB PO SCH (22:00)
[2020-08-15] MEDS ORDERED: CYANOCOBALAMIN (B-12) 1000 MCG/1 ML VIAL IM ONE (23:30)
[2020-08-16] VITALS (24 sets, daily range): BP systolic 104–184; BP diastolic 41–100
[2020-08-16] MEDS: hydrALAZINE HCL 20 MG/ML VL IV PRN ×2 (00:06→06:39)
[2020-08-16] MEDS: LORazepam 2MG/ML-1ML VIAL IV PRN ×3 (00:26→21:50)
[2020-08-16] MEDS: LEVALBUTEROL HCL 1.25 MG/3 ML NEB NEB SCH ×5 (00:39→23:56)
[2020-08-16] MEDS: PIPERACILLIN-TAZOB 3.375GM 100 ML IV SCH ×4 (04:10→21:48)
[2020-08-16] MEDS: MORPHINE SULF INJ 2 MG/ML SYRINGE 1ML IV PRN ×3 (05:13→23:41)
[2020-08-16 05:27] LABS: Basophils # (auto) 0 10 ^3/uL (0-0.2); Basophils % (auto) 0.2 % (0.0-2.0); Eosinophils # (auto) 0 10 ^3/uL (0-0.8); Eosinophils % (auto) 0.4 % (0.0-7.0); Hematocrit 35.1 % (41.0-53.0); Hemoglobin 11.9 g/dL (13.5-17.5); Lymphocytes # (auto) 0.5 10 ^3/uL (0.4-5.4); Lymphocytes % (auto) 5.1 % (10.0-50.0); Mean Corpuscular Hemoglobin 32.6 pg (28.0-32.0); Monocytes # (auto) 1.4 10 ^3/uL (0-1.3); Monocytes % (auto) 15.2 % (0.0-12.0); Neutrophils # (auto) 7.6 10 ^3/uL (1.6-8.6); Neutrophils % (auto) 79.1 % (37.0-80.0); Red Blood Cells 3.66 10^6/uL (4.5-5.90); Red Cell Distribution Width 15.4 % (11.8-14.3); White Blood Cell 9.5 10^3/uL (4.4-10.8)
[2020-08-16 06:01] LABS: Albumin 3.1 g/dL (3.4-5.0); Calcium 8.2 mg/dL (8.5-10.1); Magnesium 1.5 mg/dL (1.6-2.6); Potassium 3.7 mmol/L (3.5-5.1)
[2020-08-16 06:08] LABS: BUN/Creatinine Ratio 36.1; Bilirubin, Total 0.8 mg/dL (0.2-1.0); Total Protein 6.4 g/dL (6.4-8.2)
[2020-08-16] MEDS: IPRATROPIUM BROM 0.5 MG/2.5ML INH SOL NEB PRN ×2 (06:08→12:05)
[2020-08-16] MEDS: BUDESONIDE (INHALATION) 0.5 MG/2 ML NEB NEB SCH ×2 (06:08→18:15)
[2020-08-16] MEDS: ONDANSETRON HCL 4 MG/2 ML VIAL IV PRN (06:24)
[2020-08-16] MEDS ORDERED: MAGNESIUM SULFATE 1GM/100ML 100 ML IV ONE (08:07)
[2020-08-16] MEDS: SOD CHL 0.45% 1,000 ML IV SCH (08:41)
[2020-08-16] MEDS: MAGNESIUM SULFATE 1GM/100ML 100 ML IV SCH ×2 (08:41→09:15)
[2020-08-16] MEDS: ASPirin-EC 81 mg tab PO SCH ×2 (09:15→10:00)
[2020-08-16] MEDS: CLOPIDOGREL BISULFATE 75 MG TAB PO SCH ×2 (09:16→10:00)
[2020-08-16] MEDS: APIXABAN 5 MG TAB PO SCH ×2 (09:16→10:00)
[2020-08-16] MEDS: FAMOTIDINE 20 MG TAB PO SCH ×2 (09:16→10:00)
[2020-08-16] MEDS: AMIODARONE HCL 200 MG TAB PO SCH ×3 (09:17→21:48)
[2020-08-16] MEDS: METOPROLOL TARTRATE 50 MG TAB PO SCH ×2 (09:17→21:49)
[2020-08-16] MEDS: SERTRALINE HCL 50 MG TAB PO SCH ×2 (09:17→10:00)
[2020-08-16] MEDS: FOLIC ACID 1 MG in D5W 5% 50 ML INJ SCH (09:21)
[2020-08-16] MEDS: SODIUM CHLOR 0.9% PF (SALINE LOCK) 10ML VIAL/SYR IV SCH ×2 (09:22→21:48)
[2020-08-16] MEDS ORDERED: POTASSIUM CHLORIDE 20 MEQ, LIDOCAINE 1% (LOCAL ANESTH.) 2 ML in SODIUM CHL 0.9% 100 ML IV ONE (10:15)
[2020-08-16] MEDS ORDERED: BISACODYL 10 MG RECT SUPP PR ONE (12:00)
[2020-08-16] MEDS: LACTULOSE 20Gm/30ML SOLN PO SCH ×3 (12:00→23:42)
[2020-08-16] MEDS ORDERED: ENOXAPARIN SOD 60 MG/0.6 ML SYRINGE SC ONE (13:15)
[2020-08-16] MEDS: hydrALAZINE HCL 20 MG/ML VL IV SCH ×2 (14:27→17:25)
[2020-08-16] MEDS: ENSURE CLEAR Mixed Berry 8oz Carton PO SCH (17:26)
[2020-08-16] MEDS: ATORVASTATIN 20 MG TAB PO SCH (21:49)
[2020-08-16] MEDS: traZODone HCL 50 MG TAB PO SCH (21:49)
[2020-08-16] MEDS: ENOXAPARIN SOD 60 MG/0.6 ML SYRINGE SC SCH (21:49)
[2020-08-17] VITALS (17 sets, daily range): BP systolic 100–186; BP diastolic 58–96
[2020-08-17] MEDS: hydrALAZINE HCL 20 MG/ML VL IV SCH ×5 (03:00→18:31)
[2020-08-17] MEDS: PIPERACILLIN-TAZOB 3.375GM 100 ML IV SCH ×4 (04:01→20:56)
[2020-08-17 05:36] LABS: Magnesium 2.2 mg/dL (1.6-2.6); Potassium 3.6 mmol/L (3.5-5.1)
[2020-08-17 05:38] LABS: BUN/Creatinine Ratio 36.5; Calcium 8.6 mg/dL (8.5-10.1)
[2020-08-17] MEDS: LACTULOSE 20Gm/30ML SOLN PO SCH ×3 (06:00→17:41)
[2020-08-17] MEDS: LEVALBUTEROL HCL 1.25 MG/3 ML NEB NEB SCH ×3 (07:34→19:07)
[2020-08-17] MEDS: BUDESONIDE (INHALATION) 0.5 MG/2 ML NEB NEB SCH ×2 (07:34→19:07)
[2020-08-17] MEDS: ENSURE CLEAR Mixed Berry 8oz Carton PO SCH ×2 (08:00→18:00)
[2020-08-17] MEDS: SOD CHL 0.45% 1,000 ML IV SCH ×3 (09:52→18:30)
[2020-08-17] MEDS: SODIUM CHLOR 0.9% PF (SALINE LOCK) 10ML VIAL/SYR IV SCH ×2 (09:52→21:02)
[2020-08-17] MEDS: SERTRALINE HCL 50 MG TAB PO SCH ×2 (10:00→10:02)
[2020-08-17] MEDS: ENOXAPARIN SOD 60 MG/0.6 ML SYRINGE SC SCH ×2 (10:00→21:03)
[2020-08-17] MEDS: AMIODARONE HCL 200 MG TAB PO SCH ×2 (10:01→20:56)
[2020-08-17] MEDS: METOPROLOL TARTRATE 50 MG TAB PO SCH ×2 (10:01→20:57)
[2020-08-17] MEDS: ASPirin-EC 81 mg tab PO SCH (10:02)
[2020-08-17] MEDS: CLOPIDOGREL BISULFATE 75 MG TAB PO SCH (10:02)
[2020-08-17] MEDS: FAMOTIDINE 20 MG TAB PO SCH (10:02)
[2020-08-17] MEDS: FOLIC ACID 1 MG in D5W 5% 50 ML INJ SCH (11:05)
[2020-08-17] MEDS: IPRATROPIUM BROM 0.5 MG/2.5ML INH SOL NEB PRN (11:52)
[2020-08-17] MEDS: MORPHINE SULF INJ 2 MG/ML SYRINGE 1ML IV PRN (15:30)
[2020-08-17] MEDS: LORazepam 2MG/ML-1ML VIAL IV PRN (15:49)
[2020-08-17] MEDS ORDERED: LEVOTHYROXINE SODIUM 100 MCG/5 ML INJ IV ONE (18:00)
[2020-08-17] MEDS ORDERED: TPN PER PHARMACY 0 ML IV SCH ×2 (18:45)
[2020-08-17] MEDS ORDERED: AMINO ACID INFUSION IN D10W 1,000 ML IV ONE (20:00)
[2020-08-17] MEDS: ATORVASTATIN 20 MG TAB PO SCH (20:57)
[2020-08-17] MEDS: HALOPERIDOL LACTATE 5 MG/ML INJ VIAL IM PRN (23:16)
[2020-08-18] VITALS (21 sets, daily range): BP systolic 82–174; BP diastolic 49–99
[2020-08-18] MEDS ORDERED: DEXTROSE (50%) 50ML SYRG IV SCH
[2020-08-18] MEDS: ACCU-CHEK COMFORT CURVE STRIP VI SCH ×4 (00:14→17:29)
[2020-08-18] MEDS: InsuLIN REG 1unit/0.01ml Soln (100units/ml) SC SCH ×4 (00:18→17:30)
[2020-08-18] MEDS: ONDANSETRON HCL 4 MG/2 ML VIAL IV PRN (00:27)
[2020-08-18] MEDS: MORPHINE SULF INJ 2 MG/ML SYRINGE 1ML IV PRN ×5 (00:28→18:15)
[2020-08-18] MEDS: LEVALBUTEROL HCL 1.25 MG/3 ML NEB NEB SCH ×5 (00:42→22:10)
[2020-08-18] MEDS ORDERED: LABETALOL HCL 5 MG/ML ML 20ML VIAL IV ONE (00:44)
[2020-08-18] MEDS ORDERED: LABETALOL HCL 5 MG/ML 4ML SYRINGE IV ONE (00:45)
[2020-08-18] MEDS: hydrALAZINE HCL 20 MG/ML VL IV SCH ×5 (01:31→17:28)
[2020-08-18] MEDS: PIPERACILLIN-TAZOB 3.375GM 100 ML IV SCH ×4 (03:01→20:55)
[2020-08-18] MEDS: SOD CHL 0.45% 1,000 ML IV SCH (04:15)
[2020-08-18 05:10] LABS: Basophils # (auto) 0.1 10 ^3/uL (0-0.2); Basophils % (auto) 0.7 % (0.0-2.0); Eosinophils # (auto) 0.2 10 ^3/uL (0-0.8); Eosinophils % (auto) 1.9 % (0.0-7.0); Hematocrit 32.5 % (41.0-53.0); Hemoglobin 11.1 g/dL (13.5-17.5); Lymphocytes # (auto) 0.5 10 ^3/uL (0.4-5.4); Lymphocytes % (auto) 4.1 % (10.0-50.0); Mean Corpuscular Hemoglobin 32.9 pg (28.0-32.0); Mean Corpuscular Hgb Conc. 34.2 g/dL (32.0-36.0); Mean Corpuscular Volume 96.2 fL (80.0-100.0); Monocytes # (auto) 1.4 10 ^3/uL (0-1.3); Monocytes % (auto) 12.1 % (0.0-12.0); Neutrophils # (auto) 9.5 10 ^3/uL (1.6-8.6); Neutrophils % (auto) 81.2 % (37.0-80.0); Red Blood Cells 3.38 10^6/uL (4.5-5.90); Red Cell Distribution Width 15.7 % (11.8-14.3); White Blood Cell 11.7 10^3/uL (4.4-10.8)
[2020-08-18] MEDS: LACTULOSE 20Gm/30ML SOLN PO SCH ×4 (05:16→17:29)
[2020-08-18 05:30] LABS: Calcium 8.4 mg/dL (8.5-10.1); Magnesium 1.8 mg/dL (1.6-2.6); Potassium 3.3 mmol/L (3.5-5.1)
[2020-08-18 05:35] LABS: BUN/Creatinine Ratio 38.2; Bilirubin, Total 0.8 mg/dL (0.2-1.0); Phosphorus 1.7 mg/dL (2.5-4.90); Pre Albumin 11.9 mg/dL (20.0-40.0)
[2020-08-18] MEDS: ENSURE CLEAR Mixed Berry 8oz Carton PO SCH ×2 (08:00→17:29)
[2020-08-18] MEDS ORDERED: MELO1TAB73 PO (09:26)
[2020-08-18] MEDS ORDERED: DICL1GEL50 TD (09:26)
[2020-08-18] MEDS: ENOXAPARIN SOD 60 MG/0.6 ML SYRINGE SC SCH (09:46)
[2020-08-18] MEDS: FOLIC ACID 1 MG in D5W 5% 50 ML INJ SCH (09:47)
[2020-08-18] MEDS: LEVOTHYROXINE SODIUM 100 MCG/5 ML INJ IV SCH (09:47)
[2020-08-18] MEDS: SODIUM CHLOR 0.9% PF (SALINE LOCK) 10ML VIAL/SYR IV SCH ×2 (09:48→20:55)
[2020-08-18] MEDS: BUDESONIDE (INHALATION) 0.5 MG/2 ML NEB NEB SCH ×2 (09:54→22:10)
[2020-08-18] MEDS: AMIODARONE HCL 200 MG TAB PO SCH ×2 (09:58→20:55)
[2020-08-18] MEDS: CLOPIDOGREL BISULFATE 75 MG TAB PO SCH ×2 (09:59→11:24)
[2020-08-18] MEDS: METOPROLOL TARTRATE 50 MG TAB PO SCH ×2 (09:59→21:12)
[2020-08-18] MEDS: ASPirin-EC 81 mg tab PO SCH ×2 (09:59→11:24)
[2020-08-18] MEDS: FAMOTIDINE 20 MG TAB PO SCH (09:59)
[2020-08-18] MEDS: SERTRALINE HCL 50 MG TAB PO SCH (09:59)
[2020-08-18] MEDS ORDERED: POTASSIUM PHOSPHATE 22 MEQ in SODIUM CHL 0.9% 100 ML IV ONE (10:00)
[2020-08-18] MEDS: POTASSIUM CHL 20MEQ/100ML 100 ML IV SCH ×2 (10:53→12:17)
[2020-08-18] MEDS ORDERED: MAGNESIUM SULFATE 1GM/100ML 100 ML IV ONE (11:15)
[2020-08-18] MEDS: D5W 5% 1,000 ML IV SCH ×3 (11:46→21:12)
[2020-08-18] MEDS: HALOPERIDOL LACTATE 5 MG/ML INJ VIAL IM PRN ×2 (12:00→20:56)
[2020-08-18] MEDS: IPRATROPIUM BROM 0.5 MG/2.5ML INH SOL NEB PRN (18:33)
[2020-08-18] MEDS ORDERED: TPN PER PHARMACY IV NR ×10 (20:00)
[2020-08-18] MEDS: APIXABAN 5 MG TAB PO SCH (20:55)
[2020-08-18] MEDS: ATORVASTATIN 20 MG TAB PO SCH (20:55)
[2020-08-18] MEDS: ACETAMINOPHEN 500 MG TAB PO PRN (20:56)
[2020-08-19] VITALS (7 sets, daily range): BP systolic 104–155; BP diastolic 62–75
[2020-08-19] MEDS: MORPHINE SULF INJ 2 MG/ML SYRINGE 1ML IV PRN ×4 (01:30→10:55)
[2020-08-19] MEDS: hydrALAZINE HCL 20 MG/ML VL IV SCH ×5 (02:00→18:41)
[2020-08-19] MEDS: PIPERACILLIN-TAZOB 3.375GM 100 ML IV SCH ×4 (03:00→23:05)
[2020-08-19] MEDS: HALOPERIDOL LACTATE 5 MG/ML INJ VIAL IM PRN ×2 (04:59→16:03)
[2020-08-19] MEDS: ACCU-CHEK COMFORT CURVE STRIP VI SCH ×4 (05:48→18:41)
[2020-08-19] MEDS: LACTULOSE 20Gm/30ML SOLN PO SCH ×4 (06:00→18:41)
[2020-08-19] MEDS: InsuLIN REG 1unit/0.01ml Soln (100units/ml) SC SCH ×4 (06:00→18:42)
[2020-08-19] MEDS: LEVALBUTEROL HCL 1.25 MG/3 ML NEB NEB SCH ×3 (06:22→18:20)
[2020-08-19] MEDS: BUDESONIDE (INHALATION) 0.5 MG/2 ML NEB NEB SCH ×2 (06:22→18:20)
[2020-08-19 06:29] LABS: Basophils # (auto) 0.1 10 ^3/uL (0-0.2); Basophils % (auto) 0.6 % (0.0-2.0); Eosinophils # (auto) 0.7 10 ^3/uL (0-0.8); Eosinophils % (auto) 5.9 % (0.0-7.0); Hematocrit 29.6 % (41.0-53.0); Hemoglobin 10.4 g/dL (13.5-17.5); Lymphocytes # (auto) 0.5 10 ^3/uL (0.4-5.4); Lymphocytes % (auto) 4.7 % (10.0-50.0); Mean Corpuscular Hemoglobin 33.5 pg (28.0-32.0); Mean Corpuscular Hgb Conc. 35.1 g/dL (32.0-36.0); Mean Corpuscular Volume 95.4 fL (80.0-100.0); Monocytes # (auto) 1.3 10 ^3/uL (0-1.3); Monocytes % (auto) 11.1 % (0.0-12.0); Neutrophils # (auto) 9.1 10 ^3/uL (1.6-8.6); Neutrophils % (auto) 77.7 % (37.0-80.0); Red Cell Distribution Width 15.2 % (11.8-14.3); White Blood Cell 11.7 10^3/uL (4.4-10.8)
[2020-08-19 06:46] LABS: Potassium 3.4 mmol/L (3.5-5.1)
[2020-08-19 06:56] LABS: Albumin 2.7 g/dL (3.4-5.0); BUN/Creatinine Ratio 48.3; Bilirubin, Total 0.6 mg/dL (0.2-1.0); Calcium 8.5 mg/dL (8.5-10.1); Phosphorus 2.5 mg/dL (2.5-4.90); Total Protein 5.3 g/dL (6.4-8.2)
[2020-08-19] MEDS: ENSURE CLEAR Mixed Berry 8oz Carton PO SCH ×2 (08:00→18:00)
[2020-08-19] MEDS: ASPirin-EC 81 mg tab PO SCH (09:01)
[2020-08-19] MEDS: SERTRALINE HCL 50 MG TAB PO SCH (09:01)
[2020-08-19] MEDS: METOPROLOL TARTRATE 50 MG TAB PO SCH ×2 (10:00→23:08)
[2020-08-19] MEDS: D5W 5% 1,000 ML IV SCH ×2 (10:00→16:13)
[2020-08-19] MEDS ORDERED: POTASSIUM CHL 20MEQ/100ML 100 ML IV ONE (10:00)
[2020-08-19] MEDS: FOLIC ACID 1 MG in D5W 5% 50 ML INJ SCH (10:53)
[2020-08-19] MEDS: SODIUM CHLOR 0.9% PF (SALINE LOCK) 10ML VIAL/SYR IV SCH ×2 (10:58→23:05)
[2020-08-19] MEDS: LEVOTHYROXINE SODIUM 100 MCG/5 ML INJ IV SCH (10:59)
[2020-08-19] MEDS: AMIODARONE HCL 200 MG TAB PO SCH ×2 (11:00→23:07)
[2020-08-19] MEDS: APIXABAN 5 MG TAB PO SCH ×2 (11:03→23:07)
[2020-08-19] MEDS: FAMOTIDINE 20 MG TAB PO SCH (11:04)
[2020-08-19] MEDS: CLOPIDOGREL BISULFATE 75 MG TAB PO SCH (11:05)
[2020-08-19] MEDS ORDERED: predniSONE 20 MG TAB PO ONE (12:00)
[2020-08-19] MEDS ORDERED: D5W 5% 1,000 ML IV ONE (17:00)
[2020-08-19] MEDS: IPRATROPIUM BROM 0.5 MG/2.5ML INH SOL NEB PRN (18:20)
[2020-08-19] MEDS ORDERED: TPN PER PHARMACY IV NR ×9 (20:00)
[2020-08-19] MEDS ORDERED: D5W 5% 1,000 ML IV SCH (20:00)
[2020-08-19] MEDS: ATORVASTATIN 20 MG TAB PO SCH (23:07)
[2020-08-20] MEDS: IPRATROPIUM BROM 0.5 MG/2.5ML INH SOL NEB PRN (00:18)
[2020-08-20] MEDS: LEVALBUTEROL HCL 1.25 MG/3 ML NEB NEB SCH ×3 (00:18→18:49)
[2020-08-20] MEDS: ACCU-CHEK COMFORT CURVE STRIP VI SCH ×3 (00:23→12:28)
[2020-08-20] MEDS: hydrALAZINE HCL 20 MG/ML VL IV SCH ×5 (01:50→18:00)
[2020-08-20] MEDS: PIPERACILLIN-TAZOB 3.375GM 100 ML IV SCH ×4 (03:20→22:30)
[2020-08-20] MEDS: HALOPERIDOL LACTATE 5 MG/ML INJ VIAL IM PRN (04:40)
[2020-08-20 05:00] VITALS: BP 161/87
[2020-08-20] MEDS: LACTULOSE 20Gm/30ML SOLN PO SCH ×2 (05:32)
[2020-08-20] MEDS: InsuLIN REG 1unit/0.01ml Soln (100units/ml) SC SCH ×3 (05:52→12:20)
[2020-08-20] MEDS: MORPHINE SULF INJ 2 MG/ML SYRINGE 1ML IV PRN ×2 (06:33→13:18)
[2020-08-20 07:34] LABS: Albumin 2.8 g/dL (3.4-5.0); Potassium 3.5 mmol/L (3.5-5.1)
[2020-08-20 07:40] LABS: BUN/Creatinine Ratio 39.5; Bilirubin, Total 0.7 mg/dL (0.2-1.0); Calcium 8.4 mg/dL (8.5-10.1); Phosphorus 2.9 mg/dL (2.5-4.90); Total Protein 5.5 g/dL (6.4-8.2)
[2020-08-20 09:00] VITALS: BP 147/69
[2020-08-20] MEDS: CLOPIDOGREL BISULFATE 75 MG TAB PO SCH (10:02)
[2020-08-20] MEDS: LEVOTHYROXINE SODIUM 100 MCG/5 ML INJ IV SCH (10:02)
[2020-08-20] MEDS: SODIUM CHLOR 0.9% PF (SALINE LOCK) 10ML VIAL/SYR IV SCH ×2 (10:03→22:30)
[2020-08-20] MEDS: ENSURE CLEAR Mixed Berry 8oz Carton PO SCH ×2 (10:04→18:00)
[2020-08-20] MEDS: APIXABAN 5 MG TAB PO SCH (10:05)
[2020-08-20] MEDS: ASPirin-EC 81 mg tab PO SCH (10:05)
[2020-08-20] MEDS: AMIODARONE HCL 200 MG TAB PO SCH (10:05)
[2020-08-20] MEDS: FAMOTIDINE 20 MG TAB PO SCH (10:05)
[2020-08-20] MEDS: predniSONE 20 MG TAB PO SCH (10:05)
[2020-08-20] MEDS: METOPROLOL TARTRATE 50 MG TAB PO SCH (10:06)
[2020-08-20] MEDS: SERTRALINE HCL 50 MG TAB PO SCH (10:06)
[2020-08-20] MEDS: FOLIC ACID 1 MG in D5W 5% 50 ML INJ SCH (10:40)
[2020-08-20] MEDS: BUDESONIDE (INHALATION) 0.5 MG/2 ML NEB NEB SCH ×2 (11:00→18:50)
[2020-08-20 13:00] VITALS: BP 158/80
[2020-08-20 15:11] VITALS: BP 160/75
[2020-08-20] MEDS: LORazepam 2MG/ML-1ML VIAL IV PRN (16:40)
[2020-08-20] MEDS ORDERED: TPN PER PHARMACY IV NR ×18 (20:00)
[2020-08-20 22:00] VITALS: BP 119/60
[2020-08-20 22:41] VITALS: BP 119/60
[2020-08-21] MEDS: LEVALBUTEROL HCL 1.25 MG/3 ML NEB NEB SCH ×4 (00:15→18:54)
[2020-08-21] MEDS: AMIODARONE HCL 200 MG TAB PO SCH ×4 (00:23→21:39)
[2020-08-21] MEDS: ATORVASTATIN 20 MG TAB PO SCH ×2 (00:23→21:40)
[2020-08-21] MEDS: APIXABAN 5 MG TAB PO SCH ×4 (00:23→21:39)
[2020-08-21] MEDS: LORazepam 2MG/ML-1ML VIAL IV PRN ×2 (00:45→21:03)
[2020-08-21] MEDS: METOPROLOL TARTRATE 50 MG TAB PO SCH ×3 (00:45→21:39)
[2020-08-21] MEDS: hydrALAZINE HCL 20 MG/ML VL IV SCH ×3 (02:00→10:00)
[2020-08-21] MEDS: PIPERACILLIN-TAZOB 3.375GM 100 ML IV SCH ×4 (03:03→20:46)
[2020-08-21 05:00] VITALS: BP 139/78
[2020-08-21] MEDS: IPRATROPIUM BROM 0.5 MG/2.5ML INH SOL NEB PRN ×2 (06:17→12:07)
[2020-08-21] MEDS: BUDESONIDE (INHALATION) 0.5 MG/2 ML NEB NEB SCH ×2 (06:17→18:54)
[2020-08-21] MEDS: ENSURE CLEAR Mixed Berry 8oz Carton PO SCH ×2 (08:00→18:00)
[2020-08-21 08:39] LABS: Basophils # (auto) 0.1 10 ^3/uL (0-0.2); Basophils % (auto) 0.4 % (0.0-2.0); Eosinophils # (auto) 0.1 10 ^3/uL (0-0.8); Eosinophils % (auto) 0.8 % (0.0-7.0); Hematocrit 30.2 % (41.0-53.0); Hemoglobin 10.4 g/dL (13.5-17.5); Lymphocytes # (auto) 0.6 10 ^3/uL (0.4-5.4); Lymphocytes % (auto) 4.2 % (10.0-50.0); Mean Corpuscular Hemoglobin 32.4 pg (28.0-32.0); Mean Corpuscular Hgb Conc. 34.3 g/dL (32.0-36.0); Mean Corpuscular Volume 94.5 fL (80.0-100.0); Monocytes # (auto) 1.2 10 ^3/uL (0-1.3); Neutrophils # (auto) 11.7 10 ^3/uL (1.6-8.6); Neutrophils % (auto) 85.6 % (37.0-80.0); Red Blood Cells 3.19 10^6/uL (4.5-5.90); Red Cell Distribution Width 15.3 % (11.8-14.3); White Blood Cell 13.7 10^3/uL (4.4-10.8)
[2020-08-21] MEDS: SERTRALINE HCL 50 MG TAB PO SCH (10:00)
[2020-08-21] MEDS: ASPirin-EC 81 mg tab PO SCH ×2 (10:00→13:49)
[2020-08-21] MEDS: SODIUM CHLOR 0.9% PF (SALINE LOCK) 10ML VIAL/SYR IV SCH ×2 (10:00→21:39)
[2020-08-21] MEDS: FAMOTIDINE 20 MG TAB PO SCH (10:00)
[2020-08-21] MEDS: predniSONE 20 MG TAB PO SCH (11:10)
[2020-08-21] MEDS: LEVOTHYROXINE SODIUM 100 MCG/5 ML INJ IV SCH (11:11)
[2020-08-21] MEDS ORDERED: PANTOPRAZOLE 40 MG/10 ML VIAL INJ IV ONE (12:15)
[2020-08-21] MEDS ORDERED: hydrALAZINE HCL 20 MG/ML VL IV PRN (13:15)
[2020-08-21] MEDS: CLOPIDOGREL BISULFATE 75 MG TAB PO SCH (13:49)
[2020-08-21] MEDS: FOLIC ACID 1 MG in D5W 5% 50 ML INJ SCH (15:15)
[2020-08-21 17:00] VITALS: BP 150/78
[2020-08-21] MEDS: Glucerna Carbsteady SHAKE Vanilla 8oz PO SCH (18:00)
[2020-08-21 22:00] VITALS: BP 152/84
[2020-08-22] MEDS: LEVALBUTEROL HCL 1.25 MG/3 ML NEB NEB SCH ×4 (00:40→18:49)
[2020-08-22] MEDS: PIPERACILLIN-TAZOB 3.375GM 100 ML IV SCH ×2 (03:01→09:06)
[2020-08-22 05:00] VITALS: BP 154/80
[2020-08-22] MEDS: BUDESONIDE (INHALATION) 0.5 MG/2 ML NEB NEB SCH ×2 (05:55→18:49)
[2020-08-22 06:27] LABS: Basophils # (auto) 0.1 10 ^3/uL (0-0.2); Basophils % (auto) 0.6 % (0.0-2.0); Eosinophils # (auto) 0.1 10 ^3/uL (0-0.8); Eosinophils % (auto) 1.1 % (0.0-7.0); Hematocrit 27.9 % (41.0-53.0); Lymphocytes # (auto) 0.6 10 ^3/uL (0.4-5.4); Lymphocytes % (auto) 5.3 % (10.0-50.0); Mean Corpuscular Hemoglobin 33.6 pg (28.0-32.0); Mean Corpuscular Hgb Conc. 35.7 g/dL (32.0-36.0); Monocytes # (auto) 1.1 10 ^3/uL (0-1.3); Monocytes % (auto) 10.1 % (0.0-12.0); Neutrophils # (auto) 9.1 10 ^3/uL (1.6-8.6); Neutrophils % (auto) 82.9 % (37.0-80.0); Nucleated Red Blood Cells % 0.1 %; Red Blood Cells 2.97 10^6/uL (4.5-5.90); Red Cell Distribution Width 15.8 % (11.8-14.3)
[2020-08-22 06:38] LABS: Potassium 3.4 mmol/L (3.5-5.1)
[2020-08-22] MEDS: ENSURE CLEAR Mixed Berry 8oz Carton PO SCH ×2 (08:00→18:00)
[2020-08-22] MEDS: Glucerna Carbsteady SHAKE Vanilla 8oz PO SCH ×2 (08:00→18:00)
[2020-08-22 08:55] VITALS: BP 122/66
[2020-08-22] MEDS: FAMOTIDINE 20 MG TAB PO SCH (09:06)
[2020-08-22] MEDS: CLOPIDOGREL BISULFATE 75 MG TAB PO SCH (09:07)
[2020-08-22] MEDS: APIXABAN 5 MG TAB PO SCH ×2 (09:07→21:34)
[2020-08-22] MEDS: SERTRALINE HCL 50 MG TAB PO SCH (09:07)
[2020-08-22] MEDS: predniSONE 20 MG TAB PO SCH (09:07)
[2020-08-22] MEDS: AMIODARONE HCL 200 MG TAB PO SCH ×2 (09:07→21:34)
[2020-08-22] MEDS: ASPirin-EC 81 mg tab PO SCH (09:07)
[2020-08-22] MEDS: METOPROLOL TARTRATE 50 MG TAB PO SCH ×2 (09:08→21:35)
[2020-08-22] MEDS: LEVOTHYROXINE SODIUM 100 MCG/5 ML INJ IV SCH (09:08)
[2020-08-22] MEDS: FOLIC ACID 1 MG in D5W 5% 50 ML INJ SCH (09:27)
[2020-08-22] MEDS: SODIUM CHLOR 0.9% PF (SALINE LOCK) 10ML VIAL/SYR IV SCH ×2 (09:27→21:35)
[2020-08-22] MEDS ORDERED: PANTOPRAZOLE 40 MG/10 ML VIAL INJ IV SCH (10:00)
[2020-08-22] MEDS ORDERED: LEVO750T8 PO (10:18)
[2020-08-22] MEDS ORDERED: AMIO200T33 PO (10:18)
[2020-08-22] MEDS ORDERED: APIX5TAB PO (10:18)
[2020-08-22] MEDS ORDERED: ASPI-378 PO (10:18)
[2020-08-22] MEDS ORDERED: METO1TAB77 PO (10:21)
[2020-08-22] MEDS ORDERED: ATO40T PO (10:21)
[2020-08-22] MEDS ORDERED: PANT40TA2 PO (10:21)
[2020-08-22] MEDS ORDERED: CLOP75TA28 PO (10:21)
[2020-08-22] MEDS ORDERED: FOLI1TAB6 PO (10:21)
[2020-08-22] MEDS ORDERED: LEV50T PO (10:25)
[2020-08-22 12:00] VITALS: BP 143/94
[2020-08-22] MEDS: LORazepam 2MG/ML-1ML VIAL IV PRN (16:23)
[2020-08-22 16:37] VITALS: BP 174/85
[2020-08-22 17:30] VITALS: BP 132/73
[2020-08-22] MEDS: ATORVASTATIN 20 MG TAB PO SCH (21:34)
[2020-08-22 22:00] VITALS: BP 134/63
[2020-08-22] MEDS ORDERED: APIXABAN 5 MG TAB PO SCH (22:00)
[2020-08-23] MEDS: LEVALBUTEROL HCL 1.25 MG/3 ML NEB NEB SCH ×4 (00:31→18:00)
[2020-08-23 05:00] VITALS: BP 132/92
[2020-08-23] MEDS ORDERED: LEVOTHYROXINE SODIUM 50 MCG TAB PO SCH (07:00)
[2020-08-23] MEDS: BUDESONIDE (INHALATION) 0.5 MG/2 ML NEB NEB SCH ×2 (07:33→19:27)
[2020-08-23] MEDS: Glucerna Carbsteady SHAKE Vanilla 8oz PO SCH ×2 (08:00→18:00)
[2020-08-23] MEDS: ENSURE CLEAR Mixed Berry 8oz Carton PO SCH ×2 (08:00→18:00)
[2020-08-23 09:00] VITALS: BP 158/71
[2020-08-23] MEDS ORDERED: levoFLOXacin 250 MG TAB PO SCH (10:00)
[2020-08-23] MEDS ORDERED: predniSONE 20 MG TAB PO SCH (10:00)
[2020-08-23] MEDS ORDERED: FOLIC ACID 1 MG TAB PO SCH (10:00)
[2020-08-23] MEDS ORDERED: PANTOPRAZOLE 40 MG TAB PO SCH (10:00)
[2020-08-23] MEDS: AMIODARONE HCL 200 MG TAB PO SCH (10:27)
[2020-08-23] MEDS: SERTRALINE HCL 50 MG TAB PO SCH (10:28)
[2020-08-23] MEDS: ASPirin-EC 81 mg tab PO SCH (10:28)
[2020-08-23] MEDS: APIXABAN 5 MG TAB PO SCH (10:29)
[2020-08-23] MEDS: CLOPIDOGREL BISULFATE 75 MG TAB PO SCH (10:29)
[2020-08-23] MEDS: METOPROLOL TARTRATE 50 MG TAB PO SCH (10:29)
[2020-08-23] MEDS: SODIUM CHLOR 0.9% PF (SALINE LOCK) 10ML VIAL/SYR IV SCH (10:39)
[2020-08-23 13:00] VITALS: BP 162/75
[2020-08-23 14:26] VITALS: BP 158/71
[2020-08-23 16:46] VITALS: BP 156/75
[2020-08-23] MEDS: IPRATROPIUM BROM 0.5 MG/2.5ML INH SOL NEB PRN (16:55)
[2020-08-23] MEDS: LORazepam 2MG/ML-1ML VIAL IV PRN (20:35)
== END 2020-08-23 21:30 | DRG 853 ==
LOC: ER 09:22 → EDBD 09:22 → TELE 13:22 → TELE-CENTR 08-13 09:32 → DOU IN ICU 08-14 13:10 → TELE-CENTR 08-19 12:34
PROVIDERS: ADMIT Nurse Practitioner Acute Care; ATTEND Internal Medicine
PROC: 027137Z Dilation of Coronary Artery, Two Arteries with Four or More Drug-eluting Intraluminal Devices, Percutaneous Approach (ICD-10-PCS; principal; 2020-08-15)
PROC: 4A023N7 Measurement of Cardiac Sampling and Pressure, Left Heart, Percutaneous Approach (ICD-10-PCS; 2020-08-15)
PROC: B211YZZ Fluoroscopy of Multiple Coronary Arteries using Other Contrast (ICD-10-PCS; 2020-08-15)
PROC: B215YZZ Fluoroscopy of Left Heart using Other Contrast (ICD-10-PCS; 2020-08-15)
PROC: 5A09357 Assistance with Respiratory Ventilation, Less than 24 Consecutive Hours, Continuous Positive Airway Pressure (ICD-10-PCS; 2020-08-18)
PROC: 5A09357 Assistance with Respiratory Ventilation, Less than 24 Consecutive Hours, Continuous Positive Airway Pressure (ICD-10-PCS; 2020-08-20)
DX: A41.9 Sepsis, unspecified organism (principal); I21.4 Non-ST elevation (NSTEMI) myocardial infarction; N17.0 Acute kidney failure with tubular necrosis; G93.41 Metabolic encephalopathy; J96.21 Acute and chronic respiratory failure with hypoxia; J18.9 Pneumonia, unspecified organism; J96.22 Acute and chronic respiratory failure with hypercapnia; R57.0 Cardiogenic shock; I50.33 Acute on chronic diastolic (congestive) heart failure; N18.4 Chronic kidney disease, stage 4 (severe); E87.0 Hyperosmolality and hypernatremia; I42.9 Cardiomyopathy, unspecified; J98.11 Atelectasis; I13.0 Hypertensive heart and chronic kidney disease with heart failure and stage 1 through stage 4 chronic kidney disease, or unspecified chronic kidney disease; I95.9 Hypotension, unspecified; I27.20 Pulmonary hypertension, unspecified; I48.91 Unspecified atrial fibrillation; I25.10 Atherosclerotic heart disease of native coronary artery without angina pectoris; Z20.822 Contact with and (suspected) exposure to COVID-19; D64.9 Anemia, unspecified; E03.9 Hypothyroidism, unspecified; E11.22 Type 2 diabetes mellitus with diabetic chronic kidney disease; E78.00 Pure hypercholesterolemia, unspecified; E78.5 Hyperlipidemia, unspecified; E86.0 Dehydration; E88.09 Other disorders of plasma-protein metabolism, not elsewhere classified; F03.90 Unspecified dementia, unspecified severity, without behavioral disturbance, psychotic disturbance, mood disturbance, and anxiety; F17.200 Nicotine dependence, unspecified, uncomplicated; F43.10 Post-traumatic stress disorder, unspecified; J43.9 Emphysema, unspecified; K59.00 Constipation, unspecified; R04.0 Epistaxis; T50.2X5A Adverse effect of carbonic-anhydrase inhibitors, benzothiadiazides and other diuretics, initial encounter; Y92.89 Other specified places as the place of occurrence of the external cause; Z79.02 Long term (current) use of antithrombotics/antiplatelets; Z79.51 Long term (current) use of inhaled steroids; Z79.82 Long term (current) use of aspirin; Z79.84 Long term (current) use of oral hypoglycemic drugs; Z82.49 Family history of ischemic heart disease and other diseases of the circulatory system; Z86.74 Personal history of sudden cardiac arrest; I25.2 Old myocardial infarction
CPT/HCPCS: 36415; 36569; 36600; 70450; 70551; 71045; 71250; 71275; 72192; 76705; 76775; 78582; 80048; 80053; 80061; 80307; 81001; 82040; 82306; 82550; 82570; 82607; 82746; 82805; 82962; 83036; 83605; 83735; 83880; 84100; 84132; 84156; 84300; 84439; 84443; 84478; 84484; 85007; 85025; 85027; 85049; 85610; 85730; 86141; 87040; 87081; 87426; 92610; 92928; 93005; 93306; 93458; 93886; 93970; 94640; 94660; 96365; 96366; 96372; 96375; 96376; 97110; 97116; 97530; 99152; 99153; C1874; C1887; C9113; G0378; J0696; J1815; J2001; J2250; J2405; J2543; J3480; J3490; J7060; Q9967